=== PATIENT | male | born 1945 | race African-American/Black ===

== ENCOUNTER → 2019-11-17 | Outpatient (CLI) | payer MEDICARE ==
[~2019-11-17] MED LIST: AMOX250C PO; FELO5TAB4 PO; FINA5TAB4 PO; LEVO150T5 PO; TERA10CA3 PO
--- NOTE | 2019-11-17 15:55 | RAD ---
EXAM: Right lower extremity venous Doppler sonogram. HISTORY: Pain and swelling. TECHNIQUE: Lomeli scale and color Doppler sonographic evaluation of the right lower extremity veins with spectral waveform analysis was performed. FINDINGS: There is normal color flow, normal compressibility and there are normal spectral waveforms in the common femoral, superficial femoral, popliteal, posterior tibial and greater saphenous veins. IMPRESSION: No Doppler evidence of lower extremity deep venous thrombosis. Electronically signed by: Rima Gomez MD (11/17/2019 3:52 PM) [id number]
== END | disposition home or self-care (01) ==
LOC: US 15:12
PROVIDERS: ATTEND Orthopaedic Surgery
DX: M79.89 Other specified soft tissue disorders (principal)
CPT/HCPCS: 93971